=== PATIENT | female | born 1955 | race Caucasian/White ===

== ENCOUNTER → 2024-12-22 08:57 | Outpatient (BNVA) | payer MEDICARE, SELFPAY | PROVIDERS: PCP Nurse Practitioner Family; Visit Provider Dermatology | DX: L82.1 Other seborrheic keratosis (principal); L57.8 Other skin changes due to chronic exposure to nonionizing radiation; L81.4 Other melanin hyperpigmentation; D18.01 Hemangioma of skin and subcutaneous tissue; B07.8 Other viral warts; L08.89 Other specified local infections of the skin and subcutaneous tissue; L53.8 Other specified erythematous conditions; R23.8 Other skin changes | CPT/HCPCS: 17110; 99203 ==